=== PATIENT | female | born 1965 | race Hispanic/Latino ===

== ENCOUNTER 2017-05-02 14:57 | Inpatient (IN) | payer SELFPAY ==
[2017-05-02] VITALS (7 sets, daily range): BP systolic 122–143; BP diastolic 75–86
[~2017-05-02] VITALS: Ht 171.4 cm; Wt 112.9 kg
[2017-05-02 15:23] LABS: BASOPHILS # (AUTO) 0.1 (0.0-0.1); BASOPHILS % 0.8 % (0.0-1.0); EOSINOPHILS # (AUTO) 0.1 (0.0-0.4); EOSINOPHILS % 1.5 % (0.0-6.0); HEMATOCRIT 28.9 % (34.2-44.1); LYMPHOCYTES # (AUTO) 2.5 (1.0-3.2); LYMPHOCYTES % 37.4 % (18.0-39.1); MEAN CORPUSCULAR HEMOGLOBIN 18.7 pg (28-32); MEAN CORPUSCULAR VOLUME 69.1 fL (81-99); MONOCYTES # (AUTO) 0.5 (0.2-0.8); NEUTROPHILS # (AUTO) 3.4 (2.1-6.9); NEUTROPHILS % 51.8 % (38.7-80.0); PLATELET COUNT 347 x10e3/uL (140-360); RED BLOOD COUNT 4.18 x10e6/uL (3.6-5.1)
[2017-05-02 15:25] LABS: HEMOGLOBIN 7.8 g/dL (12.0-16.0)
[2017-05-02 15:27] LABS: INR 0.83; PROTHROMBIN TIME 11.8 seconds (11.9-14.5)
[2017-05-02 15:28] LABS: PARTIAL THROMBOPLASTIN TIME 29.6 seconds (23.8-35.5)
--- NOTE | 2017-05-02 15:29 | Diagnostic Imaging Report ---
Two view chest x-ray INDICATION: Dizziness COMPARISON: None. FINDINGS: Images are compromised due to multiple gridlines. The cardiomediastinal silhouette is normal. There is no evidence of hilar lymphadenopathy. The pulmonary vascular markings are normal. There is no evidence of focal consolidation or pleural effusion. Evaluation of the osseous structures demonstrates no focal abnormality. IMPRESSION: No active cardiopulmonary disease. Signed by: Dr. Rodney Estes MD on 05/02/2017 3:25 PM
[2017-05-02 15:35] LABS: ANION GAP 12.5 mmol/L (8-16); BLOOD UREA NITROGEN 13 mg/dL (7-26); BUN/CREATININE RATIO 18 (6-25); CALCIUM 8.9 mg/dL (8.4-10.2); CARBON DIOXIDE 26 mmol/L (22-29); CHLORIDE 106 mmol/L (98-107); CREATINE KINASE 211 IU/L (29-168); CREATININE, SERUM 0.73 mg/dL (0.57-1.11); EST GLOMERULAR FILTRATION RATE > 60 ML/MIN (60-); GLUCOSE 95 mg/dL (74-118); POTASSIUM 3.5 mmol/L (3.5-5.1); SODIUM 141 mmol/L (136-145)
[2017-05-02 15:41] LABS: TROPONIN I 0.003 ng/mL (0-0.300)
--- NOTE | 2017-05-02 15:42 | Diagnostic Imaging Report ---
Examination: CT BRAIN WITHOUT CONTRAST History:Dizziness. Comparison studies:None Technique: Axial images were obtained from the skull base to the vertex. Coronal and sagittal images reconstructed from the axial data. Intravenous contrast: None Findings: Scalp: No abnormalities. Bones: No fractures, blastic or lytic lesions. Brain sulci: Appropriate for age. Ventricles: Normal in size and configuration. No hydrocephalus. Extra-axial space: No abnormalities. Parenchyma: No abnormal densities. No masses, hemorrhage, or acute or chronic cortical based vascular insults. Sellar/suprasellar region: No abnormalities. Craniocervical junction: Patent foramen magnum. No Chiari one malformation. Incidental findings: Opacified right sphenoid sinus with adjacent osteitis. Impression: 1. No intracranial abnormalities. 2. Chronic right sphenoid sinusitis. Signed by: Dr. Ngozi Butterfield M.D. on 05/02/2017 3:38 PM
[2017-05-02] MEDS ORDERED: SODIUM CHLORIDE 0.9% 250ML 250 ML IV ONE (15:45)
--- NOTE | 2017-05-02 17:02 | Diagnostic Imaging Report ---
CT chest pulmonary embolism protocol CPT code: 47814 INDICATION: Chest heaviness, vertigo TECHNIQUE: Thin collimation axial images obtained through the level of the pulmonary arteries with additional imaging through the chest following the uneventful administration of 100 cc of low osmolar, nonionic intravenous contrast. Images reconstructed into coronal and sagittal MIPs for complete evaluation of the tortuous and overlapping pulmonary vascular structures and to reduce patient radiation dose. RADIATION DOSE: Total DLP: 631 mGy*cm Estimated effective dose: (DLP x 0.015 x size factor) mSv CTDIvol has been reviewed. It is below the limits set by the Radiation Protocol Committee (RPC). COMPARISON: None. FINDINGS: Pulmonary artery: No filling defects are appreciated within the main, left, right, lobar or visualized segmental pulmonary arteries to suggest embolism. Aorta: The thoracic aorta is not mildly ectatic but aneurysmal. No evidence for dissection. Lymph nodes: No enlarged axillary, supraclavicular, mediastinal, or hilar lymph nodes. Thyroid: Normal in size without mass in the visualized parenchyma.. Mediastinum: The heart is normal in size. No pericardial effusion. The esophagus is collapsed. Lungs: Right Lung: There is eventration of the right diaphragm. No evidence of infiltrate. A calcified granuloma in the upper lobe measures 3 mm. No soft tissue mass. Mild air trapping present throughout. Left Lung: No evidence of infiltrate or soft tissue mass. Mild air trapping present throughout. Airways: No bronchial wall thickening. The airways are patent. Pleura: No pleural effusion or pleural based mass.. Abdomen: Visualized portions of the liver, gallbladder, pancreas, spleen, adrenal glands, and kidneys demonstrate no evidence of mass. There is fullness of the right renal collecting system without perinephric inflammation. Bones: No focal osseous lesions. IMPRESSION: 1. No evidence of pulmonary embolus or aortic dissection. 2. Mild eventration of the right diaphragm. 3. Fullness of the right renal collecting system of uncertain etiology. No perinephric inflammation. 4. Mild pulmonary air trapping suggestive of small airways disease. Signed by: Dr. Rodney Estes MD on 05/02/2017 4:58 PM
[2017-05-02] MEDS: MORPHINE SULFATE 2 MG/ML SYR IV PRN (21:00)
[2017-05-02] MEDS: SODIUM CHLORIDE FLUSH 10 ML SYR INJ PRN (21:28)
[2017-05-03] VITALS (24 sets, daily range): BP systolic 114–156; BP diastolic 75–97
[2017-05-03] MEDS ORDERED: IOPAMIDOL 370 MG/ML 200 ML INFUS..BTL INJ ONE (00:27)
[2017-05-03] MEDS ORDERED: SODIUM CHLORIDE 0.9% 50ML 50 ML ONE (00:27)
[2017-05-03 00:31] LABS: CREATINE KINASE MB 4.4 ng/mL (0.00-5.00); TROPONIN I 0.014 ng/mL (0-0.300)
[2017-05-03] MEDS: SODIUM CHLORIDE FLUSH 10 ML SYR INJ PRN ×2 (03:32→06:07)
[2017-05-03] MEDS: MORPHINE SULFATE 2 MG/ML SYR IV PRN ×5 (03:32→23:45)
[2017-05-03] MEDS: ACETAMINOPHEN 325 MG TAB PO PRN ×2 (04:15→15:53)
[2017-05-03] MEDS ORDERED: ACETAMINOPHEN 325 MG TAB ONE (04:17)
[2017-05-03 07:10] LABS: TROPONIN I 0.004 ng/mL (0-0.300)
[2017-05-03 07:13] LABS: CHOL/HDL RATIO 3.7 (3.0-3.6)
[2017-05-03] MEDS ORDERED: NITROGLYCERIN 0.4 MG SUBL SL PRN (10:00)
[2017-05-03] MEDS: PANTOPRAZOLE SOD 40 MG TABEC PO SCH (10:51)
[2017-05-03] MEDS: ENOXAPARIN SODIUM INJ 100 MG/ML SYR SC SCH ×2 (10:51→20:08)
--- NOTE | 2017-05-03 10:51 | History and Physical ---
A patient of Dr. Wen. An unfortunate 52-year-old woman admitted with chest pain which occurred while she was driving her car. Got short of breath, had chest tightness and dizziness. Chest pressure had been noted earlier in the day in the center of her chest. She was unable to take a deep breath. On arrival in the emergency room, her hemoglobin was noted to be 7.8. She was taken by ambulance. She has had a history of indigestion. She has had C-sections. Family history is positive for coronary disease, carcinoma of the esophagus in the father. Born in [place], [place]. She smoked half to a third a pack of cigarettes a day for 25 years. Drinks rarely. 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 NO KNOWN ALLERGIES. Takes p.r.n. Nexium. She is usually active. She is dyspneic on 1 flight. Admits to being overweight. Denies depression, denies urologic problems, denies eye problems. She does have a history of acid reflux. Generally she has been tired and fatigued, and she was found to be anemic. PHYSICAL EXAMINATION VITAL SIGNS: Temperature 98.7, pulse 64, respiration 16, blood pressure 134/70. HEAD: Normocephalic, atraumatic. EYES: Extraocular movements intact. LUNGS: Clear. HEART: Regular rhythm. ABDOMEN: Nontender. EXTREMITIES: Nonedematous. IMPRESSION: One of 1. Anemia which is hyperchromic microcytic. 2. Angina pectoris. PLAN: Cardiology and GI opinions. Anticoagulation. Nitroglycerin p.r.n. Consider low-dose beta steven, though heart rate is already 64. Will defer this to the enrollment consultant. CT revealed no evidence of pulmonary embolus. There was elevated diaphragm, questionable fullness of the collecting system on the right. Will check a urinalysis. Continue ICU care until seen by escort car driver. Thank you for this kind referral. Job#: [id number] EV
[2017-05-03 11:11] LABS: FREE THYROXINE INDEX 2.235 (1.4-3.8); T3 UPTAKE 29.14 % (22.50-37.00); THYROID STIMULATING HORMONE 3.099 uIU/mL (0.350-4.940)
[2017-05-03] MEDS ORDERED: PEG (High)/E-LYTE SOLN 4,000 ML BTL PO ONE (14:45)
[2017-05-03 15:01] LABS: BILIRUBIN,URINE NEGATIVE (NEGATIVE); CLARITY,URINE CLEAR (CLEAR); COLOR,URINE YELLOW (YELLOW); KETONES,URINE NEGATIVE (NEGATIVE); LEUKOCYTE ESTERASE ,URINE NEGATIVE (NEGATIVE); NITRITE,URINE NEGATIVE (NEGATIVE); PROTEIN,URINE DIPSTICK NEGATIVE (NEGATIVE); URINE UROBILINOGEN 0.2 mg/dL (0.2 - 1)
[2017-05-03 15:04] LABS: BACTERIA,URINE FEW /HPF; EPITHELIAL CELLS,URINE RARE /LPF; WBC,URINE (MAN) 0-5 /HPF (0-5)
[2017-05-03] MEDS: ONDANSETRON HCL INJ 2 MG/ML VIAL IV PRN ×2 (18:48)
[2017-05-03] MEDS ORDERED: PROMETHAZINE 12.5MG/ NACL 0.9% 12.5 MG/50 ML BAG IV PRN (19:45)
[2017-05-03] MEDS ORDERED: CITRATE OF MAGNESIA 300ML BOTTLE PO ONE ×2 (19:45→22:30)
[2017-05-03] MEDS: SIMVASTATIN 40 MG TAB PO SCH (20:08)
[2017-05-04] VITALS (16 sets, daily range): BP systolic 116–165; BP diastolic 63–109
[2017-05-04] MEDS: MORPHINE SULFATE 2 MG/ML SYR IV PRN ×2 (05:19→20:16)
[2017-05-04] MEDS: ONDANSETRON HCL INJ 2 MG/ML VIAL IV PRN (05:27)
[2017-05-04 05:33] LABS: BASOPHILS % 0.7 % (0.0-1.0); EOSINOPHILS # (AUTO) 0.1 (0.0-0.4); EOSINOPHILS % 1.2 % (0.0-6.0); HEMATOCRIT 30.1 % (34.2-44.1); HEMOGLOBIN 8.4 g/dL (12.0-16.0); LYMPHOCYTES # (AUTO) 2.8 (1.0-3.2); LYMPHOCYTES % 49.6 % (18.0-39.1); MEAN CORPUSCULAR HEMOGLOBIN 19.9 pg (28-32); MEAN CORPUSCULAR HGB CONC 27.9 g/dL (31-35); MEAN CORPUSCULAR VOLUME 71.2 fL (81-99); MONOCYTES # (AUTO) 0.7 (0.2-0.8); MONOCYTES % 11.4 % (4.4-11.3); NEUTROPHILS # (AUTO) 2.1 (2.1-6.9); NEUTROPHILS % 36.9 % (38.7-80.0); PLATELET COUNT 294 x10e3/uL (140-360); RED BLOOD COUNT 4.23 x10e6/uL (3.6-5.1); RED CELL DISTRIBUTION WIDTH 20.3 % (11.7-14.4)
[2017-05-04 05:50] LABS: ALANINE AMINOTRANSFERASE 16 IU/L (0-55); ALBUMIN 3.2 g/dL (3.5-5.0); ALBUMIN/GLOBULIN RATIO 0.8 (0.8-2.0); ALKALINE PHOSPHATASE 77 IU/L (40-150); ANION GAP 10.4 mmol/L (8-16); BLOOD UREA NITROGEN 11 mg/dL (7-26); BUN/CREATININE RATIO 15 (6-25); CALCIUM 8.9 mg/dL (8.4-10.2); CARBON DIOXIDE 29 mmol/L (22-29); CHLORIDE 108 mmol/L (98-107); CREATININE, SERUM 0.75 mg/dL (0.57-1.11); EST GLOMERULAR FILTRATION RATE > 60 ML/MIN (60-); GLUCOSE 84 mg/dL (74-118); POTASSIUM 3.4 mmol/L (3.5-5.1); SODIUM 144 mmol/L (136-145)
[2017-05-04 07:57] LABS: EOSINOPHILS % (MANUAL) 1 % (0-7); HYPOCHROMASIA MODERATE; LYMPHOCYTES % (MANUAL) 57 % (19-48); MONOCYTES % (MANUAL) 4 % (3.4-9.0); NEUTROPHILS % (MANUAL) 37 % (40-74)
[2017-05-04 07:58] LABS: ANISOCYTOSIS SLIGHT; PLATELET ESTIMATE ADEQUATE; PLATELET MORPHOLOGY COMMENT NORMAL; RBC MORPHOLOGY COMMENT NORMAL
[2017-05-04] MEDS: PANTOPRAZOLE SOD 40 MG TABEC PO SCH (08:24)
--- NOTE | 2017-05-04 08:25 | Consultation ---
DATE OF CONSULTATION: May 03, 2017 CARDIOLOGY CONSULTATION Thank you so much for the consultation. REASON FOR CONSULTATION 1. Chest pain, highly suggestive of angina pectoris. 2. Anemia, hemoglobin 7.9 g%. 3. Obesity. 4. Borderline hyperlipidemia. 5. Possible borderline hypertension, new. HPI: Ms. Marielos Marroquin is a pleasant 52-year-old patient admitted because of chest tightness and pain on and off for a couple of days. Patient admitted through the emergency room. When I saw the patient, she did not have chest pain but before I saw patient's chest pain, the patient was given morphine. Patient already seen by Dr. Wen and associates and already started on Lovenox, anticholesterol medications and Zocor, put on aspirin and also ordering a stress test, Lexiscan, and echocardiogram. Patient has family history of coronary artery disease in uncles and aunts. Patient did not have any cardiac issues. 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 She had a before. Her menstrual cycle stopped 9 months ago, but spotting is still present. No history of any GI bleed, but she has hemorrhoids but not bleeding. Two children. No other surgeries. No history of cardiac issues or hypertension or diabetes mellitus. Stopped smoking about 9 years ago. PHYSICAL EXAMINATION HEART: Normal. LUNGS: Normal. ABDOMEN: Normal. NEUROLOGICAL: Normal. SKIN: Normal. Troponin is negative. Anyhow, because of the chest pain and fairly strong family history of coronary artery disease, I am ordering a Lexiscan, 2D echocardiogram, and I will continue to follow the patient. We will give the patient ICU until tomorrow. Depending on the nuclear stress test, we will move her out of the ICU. Thank you again for this consultation. Job#: [id number] KATT LORA
[2017-05-04] MEDS: METOPROLOL TARTRATE 25 MG TAB PO SCH ×2 (09:00→18:13)
[2017-05-04] MEDS ORDERED: REGADENOSON 0.4 MG/5 ML SYR IV ONE (12:12)
[2017-05-04] MEDS ORDERED: POTASSIUM CHLORIDE 20MEQ/15ML UDC NG PRN (13:45)
--- NOTE | 2017-05-04 13:50 | Progress Note ---
DATE: CARDIOLOGY PROGRESS NOTE Patient is seen in the room. Patient at this time fairly doing well. Her troponins are negative. Patient came with hemoglobin of 7.9 gram percent. At this time, patient with no obvious GI bleed but some history of hemorrhoids were there. At this time, however, patient mainly came for chest tightness and shortness of breath, and at this time I ordered a nuclear stress test and this is being done today. Of course, being done, is not yet completed. Once they are available, I will put the report in the chart and also discuss with the patient about her chest pain and chest tightness for which she came. Patient at this time stable cardiac status. Job#: [id number] EV
[2017-05-04] MEDS: SIMVASTATIN 40 MG TAB PO SCH (20:14)
[2017-05-04] MEDS: ENOXAPARIN SODIUM INJ 100 MG/ML SYR SC SCH (21:00)
[2017-05-05] VITALS: BP 133/75
[2017-05-05] MEDS ORDERED: CITRATE OF MAGNESIA 300ML BOTTLE PO STA (01:41)
[2017-05-05 04:00] VITALS: BP_SYST 133; BP_SYST 135; BP_DIAS 75; BP_DIAS 93
[2017-05-05] MEDS ORDERED: CITRATE OF MAGNESIA 300ML BOTTLE PO ONE (05:00)
[2017-05-05 07:21] LABS: BASOPHILS % 0.7 % (0.0-1.0); EOSINOPHILS # (AUTO) 0.1 (0.0-0.4); EOSINOPHILS % 1.7 % (0.0-6.0); HEMATOCRIT 31.8 % (34.2-44.1); HEMOGLOBIN 8.7 g/dL (12.0-16.0); LYMPHOCYTES # (AUTO) 1.7 (1.0-3.2); LYMPHOCYTES % 31.1 % (18.0-39.1); MEAN CORPUSCULAR HEMOGLOBIN 19.9 pg (28-32); MEAN CORPUSCULAR HGB CONC 27.4 g/dL (31-35); MEAN CORPUSCULAR VOLUME 72.6 fL (81-99); MONOCYTES # (AUTO) 0.6 (0.2-0.8); MONOCYTES % 10.3 % (4.4-11.3); NEUTROPHILS # (AUTO) 3.1 (2.1-6.9); PLATELET COUNT 313 x10e3/uL (140-360); RED BLOOD COUNT 4.38 x10e6/uL (3.6-5.1); RED CELL DISTRIBUTION WIDTH 20.6 % (11.7-14.4)
[2017-05-05] MEDS: PANTOPRAZOLE SOD 40 MG TABEC PO SCH (07:30)
[2017-05-05 07:43] LABS: ALANINE AMINOTRANSFERASE 18 IU/L (0-55); ALBUMIN 3.5 g/dL (3.5-5.0); ALBUMIN/GLOBULIN RATIO 0.9 (0.8-2.0); ALKALINE PHOSPHATASE 80 IU/L (40-150); ANION GAP 11.7 mmol/L (8-16); BLOOD UREA NITROGEN 13 mg/dL (7-26); BUN/CREATININE RATIO 16 (6-25); CALCIUM 9.2 mg/dL (8.4-10.2); CARBON DIOXIDE 27 mmol/L (22-29); CHLORIDE 107 mmol/L (98-107); CREATININE, SERUM 0.79 mg/dL (0.57-1.11); EST GLOMERULAR FILTRATION RATE > 60 ML/MIN (60-); GLUCOSE 88 mg/dL (74-118); POTASSIUM 3.7 mmol/L (3.5-5.1); SODIUM 142 mmol/L (136-145)
[2017-05-05 07:52] VITALS: BP 104/75
[2017-05-05] MEDS: METOPROLOL TARTRATE 25 MG TAB PO SCH ×2 (09:00→16:30)
[2017-05-05] MEDS: ASPIRIN 325 MG TAB PO SCH (09:00)
[2017-05-05] MEDS: ENOXAPARIN SODIUM INJ 100 MG/ML SYR SC SCH (09:00)
[2017-05-05 10:18] LABS: ANISOCYTOSIS SLIGHT; EOSINOPHILS % (MANUAL) 6 % (0-7); HYPOCHROMASIA SLIGHT; LYMPHOCYTES % (MANUAL) 35 % (19-48); MONOCYTES % (MANUAL) 9 % (3.4-9.0); NEUTROPHILS % (MANUAL) 48 % (40-74); RBC MORPHOLOGY COMMENT ABNORMAL
[2017-05-05 10:19] LABS: PLATELET ESTIMATE ADEQUATE; PLATELET MORPHOLOGY COMMENT NORMAL
--- NOTE | 2017-05-05 10:44 | Operative Report ---
DATE OF PROCEDURE: May 05, 2017 REFERRING PHYSICIAN: Dr. Juwan Sawyer. PROCEDURES PERFORMED 1. Esophagogastroduodenoscopy with biopsies. 2. Colonoscopy with polypectomy. INDICATIONS FOR EGD: Acid reflux. INDICATIONS FOR COLONOSCOPY: Iron deficiency anemia. MEDICATION: Patient was done under MAC. Please see anesthesiologist's note. PROCEDURE: With the patient in the left lateral decubitus position, the flexible fiberoptic Olympus gastroscope was introduced into the esophagus under direct visualization without any difficulty. There was some patchy erythema noted in the distal esophagus. The scope was then advanced with ease into the stomach, and erosions were noted in the antrum. The body of the stomach grossly appeared to be within normal limits. Biopsies were obtained from the antrum. The pylorus appeared to be of normal contour and shape. It was intubated with ease, and the scope was advanced all the way to the 2nd portion of the duodenum. Biopsies were obtained from the proximal 2nd portion to rule out sprue. The mucosa overlying the duodenal bulb appeared to be within normal limits. The scope was then withdrawn back into the stomach and retroflexed. Mucosa overlying the fundus and the cardia appeared to be within normal limits. There was a small hiatal hernia noted in the retroflexed position. The scope was then straightened out. The stomach was decompressed. Scope was subsequently withdrawn. Patient tolerated the procedure well. IMPRESSION 1. Mild distal esophagitis. 2. Small sliding hiatal hernia. 3. Gastritis, erosive, biopsied. Biopsies sent to stain for H. pylori. 4. Rule out sprue. PLAN: Follow up histology. Initiate Protonix 40 mg 1 p.o. q.a.m. a.c. The patient was then turned around. After adequate lubrication of the anal canal, a flexible fiberoptic Olympus colonoscope was inserted into the rectum with ease and advanced all the way to the cecum. Some black and brown scattered discoloration was noted to involve the cecum and ascending colon suspicious for melanosis coli. There was a single diverticulum in the cecum and a single diverticulum in the proximal transverse colon. One polyp was hot biopsied from the proximal transverse colon. The rest of the transverse, descending, sigmoid and rectum grossly appeared to be within normal limits. The scope was then retroflexed into the distal rectum, and small internal hemorrhoids were noted, none of which was actively bleeding. The scope was then straightened out. The rectosigmoid area as well as the distal rectal area were decompressed. Scope was subsequently withdrawn. Patient tolerated the procedure well. IMPRESSION 1. Melanosis coli, cecum and ascending colon. 2. Diverticulosis, minimal. 3. Proximal transverse colon polyp, hot biopsied. 4. Internal hemorrhoids, none actively bleeding. PLAN: Follow up histology. Initiate high-fiber, low-fat diet. Initiate high-fiber supplement. Findings do not explain the patient's anemia. Will proceed with small-bowel series and if negative patient will need a capsule endoscopy on an outpatient basis. She will need a followup colonoscopy in 3 years. Job#: [id number] cc:JUWAN SAWYER MD
[2017-05-05 11:17] VITALS: BP 137/98
[2017-05-05 15:38] VITALS: BP 115/81
[2017-05-05] MEDS ORDERED: PROPOFOL IV EMULSION 10 MG/ML 50 ML VIAL ONE (17:45)
[2017-05-05] MEDS ORDERED: FENTANYL CITRATE/PF 100MCG/2 ML INJ ONE (19:06)
[2017-05-05] MEDS ORDERED: MIDAZOLAM HCL 2 MG/2 ML VIAL ONE (19:06)
[2017-05-05 20:00] VITALS: BP 140/93
--- NOTE | 2017-05-05 20:16 | Progress Note ---
DATE: May 05, 2017 CARDIOLOGY PROGRESS NOTE The patient's nuclear test is normal. Ejection fraction of 60%. The patient came with anginal like symptoms. However, ruled out for myocardial infarction. Because of obesity and some family history of coronary artery disease, investigation performed. The patient at this time found to have a low hemoglobin of 8.1 grams%. The patient underwent endoscopy. Please look at the endoscopy report. From a cardiac point of view, the patient can be discharged to follow up in my office in one week for post hospital followup and follow up with Dr. Mendez, her primary care physician. From my point of view, the patient can be discharged. Job#: [id number] GH
[2017-05-05] MEDS ORDERED: ALBUTEROL/IPRATROPIUM 3 ML NEB NEB PRN (20:45)
[2017-05-05] MEDS: SIMVASTATIN 40 MG TAB PO SCH (20:50)
[2017-05-05] MEDS: ACETAMINOPHEN 325 MG TAB PO PRN (20:50)
[2017-05-06] VITALS (7 sets, daily range): BP systolic 98–148; BP diastolic 67–102
[2017-05-06] MEDS: PANTOPRAZOLE SOD 40 MG TABEC PO SCH (07:30)
[2017-05-06] MEDS ORDERED: DIPHENHYDRAMINE HCL INJ 25 MG in SODIUM CHLORIDE 0.9% 50ML 50 ML IV ONE ×2 (08:00→08:30)
[2017-05-06] MEDS ORDERED: DEXAMETHASONE PHOS 10MG INJ 20 MG in SODIUM CHLORIDE 0.9% 50ML 50 ML IV ONE (08:00)
[2017-05-06] MEDS ORDERED: FAMOTIDINE INJ 20 MG in SODIUM CHLORIDE 0.9% 50ML 50 ML IV ONE ×2 (08:00→08:30)
[2017-05-06] MEDS ORDERED: IRON DEXTRAN INJ 50 MG in SODIUM CHLORIDE 0.9% 100 ML IV ONE ×2 (08:00→08:30)
[2017-05-06] MEDS ORDERED: IRON DEXTRAN INJ 500 MG in SODIUM CHLORIDE 0.9% 500ML 500 ML IV PRN ×2 (08:00→08:30)
[2017-05-06] MEDS: ASPIRIN 325 MG TAB PO SCH (09:00)
--- NOTE | 2017-05-06 09:15 | Consultation ---
DATE OF CONSULTATION: May 05, 2017 Marielos Marroquin is a 52-year-old female referred to me for evaluation of anemia. No history of hematochezia, melena, hematuria, hematemesis, hemoptysis. The patient had presented with chest pain. Subsequently, referred to Dr. Bryant. For detailed consult, please review Dr. Bryant's consultation. The patient was also referred to Dr. Anuj Valencia. SOCIAL HISTORY: Noncontributory. FAMILY HISTORY: Noncontributory. ALLERGIES: REPORTED NONE. MEDICATIONS: At this time: 1. Morphine. 2. Ondansetron. 3. Sodium chloride. 4. Tylenol. 5. Nitroglycerin. 6. Protonix. 7. Metoprolol. 8. Simvastatin. 9. Potassium chloride. 10. Promethazine. 11. Lovenox. REVIEW OF SYSTEMS HEENT: Normal. CARDIAC: Labeled as angina by Dr. Bryant. RESPIRATORY: Normal. GI: Iron deficiency anemia. : Normal. MUSCULOSKELETAL: Normal. SKIN AND BREASTS: Normal. NEUROENDOCRINE: Essentially normal. PHYSICAL EXAMINATION GENERAL: A rather obese female. No palpable adenopathy. HEART: Within normal limits. LUNGS: Clear. BREASTS: Deferred at request. ABDOMEN: Obese. There is no hepatosplenomegaly. RECTAL: Vaginal exam deferred. CENTRAL NERVOUS SYSTEM: Normal. EXTREMITIES: Essentially normal. LAB: Which has prompted the consultation shows a hemoglobin of 7.8, hematocrit 28.9, white count 6600, and platelets reported at 347,000. MCV very low at 69.1. MCHC very low at 27. RDW high at 19. The patient has been transfused to 8.7. Chemistry shows a sodium of 141, potassium 3.5, chloride 76, CO2 26, BUN 13, creatinine 0.7, glucose 95. Creatinine kinase is reported at 211. CK-MB reported at 6.1. Troponin was reported at 0.003. Qualitative HCG was done, which was reported to negative. The patient's cholesterol is high at 210. LDL high at 137. TSH 3. Total protein 7, albumin 3.2, globulin slightly high at 3.8. Iron low at 35. Iron binding capacity very high at 546. Saturation low at 6. Transferrin high at 390. The patient had an EGD and colonoscopy by Dr. Anuj Valencia, which showed the patient to have distal esophagitis, small sliding hiatus hernia, gastritis. By colonoscopy, she had melanosis coli, diverticulosis coli, proximal and transfer colon polyp, and internal hemorrhoids. IMPRESSION 1. Iron deficiency anemia. 2. Gastritis. 3. Esophagitis. 4. Diverticulosis coli. 5. Colonic polyp. 6. Internal hemorrhoids. 7. Morbid obesity. 8. Possible coronary artery disease being worked up by Dr. Bryant. PLAN, COMMENTS AND SUGGESTIONS: I will confine myself to hematology only. This is pure iron deficiency anemia. Sprue is definitely a possibility. However, slow blood loss because of the above GI diagnosis is also possible. Nutritional status of this patient seems to be perfectly fine. Hence, the patient is suggested to have Infed. I have spoken to her and Dr. Juwan Mendez. The patient does not have any insurance. I will confine myself to hematology only during this hospitalization. I will give her Infed. However, the patient has to be referred her to a facility where the patient will be taken care of as the patient should have a calculation by a normal gram of the amount of Infed to be given. Quantitation of immunoglobulins also suggested as the immunoglobulins have been slightly high. However, a followup of this should be done by the attending physician. Thank you very much for allowing me to participate in the management of this patient during this hospitalization. Job#: [id number] RI cc:Erica MONTERO MD DAVID STEIN, MD MAURICE HADDAD, MD
--- NOTE | 2017-05-06 11:25 | Cardiology Report ---
DATE OF STUDY: May 03, 2017 NUCLEAR GATED MYOCARDIAL PERFUSION SCAN Nuclear gated myocardial perfusion scan performed as per protocol at nuclear medicine lab at [facility] with Myoview protocol. Myoview was injected 10.5 millicuries per resting protocol and 32 millicuries per stress protocol. Lexiscan was given 0.4 mg intravenously as stress agent. I supervised the test and interpreted the test. Normal nuclear gated myocardial perfusion scan. Ejection fraction was 55%. No evidence of ischemia or scar noted. Job#: [id number]
[2017-05-06] MEDS ORDERED: ENOXAPARIN SODIUM INJ 100 MG/ML SYR SC SCH (11:30)
[2017-05-06] MEDS ORDERED: SODIUM CHLORIDE 0.9% 250ML 250 ML ONE (12:17)
--- NOTE | 2017-05-06 12:21 | Diagnostic Imaging Report ---
PROCEDURE: SMALL BOWEL SERIES FLUOROSCOPY TIME: 0.2 MINUTES Comparison: None. Indications: ANEMIA Technique: Small bowel follow through exam was performed using oral barium. Preliminary image was obtained before administration of contrast and serial overhead images were obtained after administration of oral barium. Fluoroscopy was performed and spot images were obtained. Findings: Body Care Manager radiograph shows a nonobstructive bowel gas pattern. No abnormal abdominal calcifications, mass effect, or organomegaly. Multilevel degenerative disc changes of the lumbar spine. SMALL BOWEL FOLLOW THROUGH: Small bowel loops are normal in caliber and distribution. Spot compression views of the terminal ileum are normal. The transit time was normal. IMPRESSION: Unremarkable fluoroscopic small bowel series. Dictated by: Juwan Etienne M.D. on 05/06/2017 at 12:29 Electronically approved by: Juwan Etienne M.D. on 05/06/2017 at 12:29
[2017-05-06] MEDS: ENOXAPARIN SOD INJ 40 MG/0.4 ML SYR SC SCH (12:43)
[2017-05-06] MEDS: METOPROLOL TARTRATE 25 MG TAB PO SCH ×2 (12:45→17:00)
--- NOTE | 2017-05-06 13:10 | Progress Note ---
DATE: CARDIOLOGY PROGRESS NOTE DIAGNOSES 1. Anemia. 2. Presented with angina pectoris. 3. Obesity. 4. Hypertension. Patient underwent echocardiogram and coronary angiogram. Coronary arteries normal. Left ventricular ejection fraction is normal. At this time, patient being investigated by GI and patient went today for small-bowel series and also patient is followed by Dr. Temple for anemia. Cardiac-lind, patient has done well, no cardiac issues except hypertension and obesity. That will be adjusted as an outpatient. Anytime patient can be discharged at discretion of Dr. Mendez and associates and Dr. Temple and the GI doctor. Already discussed with her last night. Job#: [id number] EV
[2017-05-06] MEDS: SIMVASTATIN 40 MG TAB PO SCH (20:39)
[2017-05-07] VITALS: BP 145/89
[2017-05-07 04:00] VITALS: BP 136/84
[2017-05-07] MEDS: PANTOPRAZOLE SOD 40 MG TABEC PO SCH (07:30)
[2017-05-07 08:00] VITALS: BP 138/98
[2017-05-07] MEDS: METOPROLOL TARTRATE 25 MG TAB PO SCH (09:17)
[2017-05-07] MEDS ORDERED: FEOSOL325 MG PO (09:20)
[2017-05-07] MEDS: ENOXAPARIN SOD INJ 40 MG/0.4 ML SYR SC SCH (11:30)
[2017-05-07] MEDS ORDERED: FERROUS SULFAT325 MG PO ×2 (11:30→11:31)
[2017-05-07 12:00] VITALS: BP 121/83
--- NOTE | 2017-05-07 14:57 | Discharge Summary ---
Admitted with anemia. Found to have gastritis, erosive, a colon polyp, and internal hemorrhoid. Small bowel series was negative. She did have family history of cancer of the GI tract; however, none could be found. She was felt to have persistent iron deficiency anemia. She presented with chest pain and shortness of breath. Cardiac evaluation was negative. Her symptoms seemed to be related to her anemia. Recommend to avoid all nonsteroidal agents. Her hemoglobin on admission was 7.8, rising to 8.1. She did receive iron infusion in hospital. She did receive 1 unit of packed cells. Advised to follow up with the [facility]. Job#: [id number] SAK
== END 2017-05-07 12:54 | disposition home or self-care (01) | DRG 812 ==
LOC: ER 14:57 → ERHOLD 16:26 → ICU 19:10 → MED/SURG3 05-04 22:15
PROVIDERS: ADMIT Internal Medicine; ATTEND Internal Medicine
PROC: 0DB98ZX Excision of Duodenum, Via Natural or Artificial Opening Endoscopic, Diagnostic (ICD-10-PCS; 2017-05-05)
PROC: 0DB88ZX Excision of Small Intestine, Via Natural or Artificial Opening Endoscopic, Diagnostic (ICD-10-PCS; 2017-05-05)
PROC: 0DBL8ZX Excision of Transverse Colon, Via Natural or Artificial Opening Endoscopic, Diagnostic (ICD-10-PCS; 2017-05-05)
PROC: 30233N1 Transfusion of Nonautologous Red Blood Cells into Peripheral Vein, Percutaneous Approach (ICD-10-PCS; 2017-05-05)
PROC: 0DB78ZX Excision of Stomach, Pylorus, Via Natural or Artificial Opening Endoscopic, Diagnostic (ICD-10-PCS; principal; 2017-05-05 08:00)
PROC: 0DB68ZX Excision of Stomach, Via Natural or Artificial Opening Endoscopic, Diagnostic (ICD-10-PCS; 2017-05-05 08:00)
DX: D50.9 Iron deficiency anemia, unspecified (principal); K44.0 Diaphragmatic hernia with obstruction, without gangrene; K29.70 Gastritis, unspecified, without bleeding; D12.3 Benign neoplasm of transverse colon; E66.01 Morbid (severe) obesity due to excess calories; Z68.38 Body mass index [BMI] 38.0-38.9, adult; Z82.49 Family history of ischemic heart disease and other diseases of the circulatory system; K21.9 Gastro-esophageal reflux disease without esophagitis; K59.00 Constipation, unspecified; K31.9 Disease of stomach and duodenum, unspecified
CPT/HCPCS: 36415; 36430; 43239; 45384; 70450; 71020; 71260; 74250; 78452; 80048; 80053; 80061; 81001; 82550; 82553; 82784; 83540; 84436; 84443; 84466; 84479; 84484; 84702; 85025; 85379; 85610; 85730; 86850; 86900; 86920; 87086; 88304; 88305; 88312; 93005; 93017; 93306; 99284; A9502; J1100; J1200; J1650; J1750; J2250; J2270; J2405; J2550; J7040; J7050; P9016; Q9967

== ENCOUNTER → 2018-08-11 | Outpatient (CLI) | payer OTHER ==
[~2018-08-11] MED LIST: FEOSOL325 MG PO; FERROUS SULFAT325 MG PO
--- NOTE | 2018-08-11 10:19 | Diagnostic Imaging Report ---
History: Low back pain Comparison studies: None Technique: Axial images were obtained through the lumbar spine.. Coronal and sagittal images reconstructed from the axial data. Dose modulation, iterative reconstruction, and/or weight based adjustment of the mA/kV was utilized to reduce the radiation dose to as low as reasonably achievable. Intravenous contrast: None Findings: Number of non-rib bearing vertebral bodies: 5 Alignment: Mild kyphosis at L2-L3 with 3 mm retrolisthesis of L3 on L4 with associated mild lower hyperlordotic lumbar curvature. Lumbar curvature convex to the to the right centered at L3-L4. Soft tissues: No gross acute abnormalities. Paraspinal muscles: Dorsal paraspinal muscles with asymmetric severe fatty replaced atrophy from the included T12 through L1 levels and moderately atrophic from L2 to the sacrum. Sacroiliac joints: Mild degenerative changes bilaterally. Vertebrae: No fractures, infection or neoplasm. Degenerative changes: L1-L2: Mildly degenerated disc. Small ossification along the posterior longitudinal ligament and mildly thickened and partially ossified ligamentum flavum without significant canal or foraminal stenosis. L2-L3: Moderately degenerated disc with loss of disc height and vacuum, most pronounced on the left along the concavity lumbar curvature. Asymmetric left disc osteophyte complex and mildly thickened and partially ossified posterior longitudinal ligament without significant canal or foraminal stenosis. L3-L4: Moderately degenerated disc with loss of disc height and vacuum phenomenon most pronounced on the left along the concavity of curvature. Minimal retrolisthesis of L3 on L4 with associated disc osteophyte complex asymmetric to the left, thickened and partially ossified ligamentum flavum and bilateral facet arthrosis with moderate left and mild right foraminal stenosis and very mild canal stenosis. L4-L5: Mildly degenerated disc. Disc bulge, thickened and partially ossified ligamentum flavum and bilateral facet arthrosis with mild canal stenosis and moderate bilateral foraminal stenosis. L5-S1: Moderately degenerated disc with loss of disc height and vacuum phenomenon. Minimal retrolisthesis of L5 on S1 with associated disc osteophyte complex, thickened ligamentum flavum and facet arthrosis with mild canal stenosis, narrowing of the subarticular recesses and severe bilateral foraminal stenosis. Incidental findings: Mild fullness of the right renal collecting system (also visualized in the partially imaged head CT of 05/02/2017) with partially imaged cystic structure at the inferior pole of the right kidney which measures up to at least 5.0 cm and may represent cyst or dilated extrarenal pelvis. IMPRESSION: 1. No lumbar spine fracture 2. Lumbar curvature convex to the right. 3. Degenerative changes with moderate multilevel disc degeneration, mild multilevel canal stenosis, multilevel facet arthrosis and multilevel foraminal stenosis (worse/severe bilaterally at L5-S1). 4. Persistent mild right renal collecting system fullness with incompletely evaluated possible cyst or dilated extrarenal pelvis. Renal ultrasound could further evaluate. Signed by: Dr. Juawn Lorenzana M.D. on 08/11/2018 10:16 AM
== END ==
LOC: CT 08:39
PROVIDERS: ATTEND Family Medicine
DX: M54.40 Lumbago with sciatica, unspecified side (principal); R29.6 Repeated falls
CPT/HCPCS: 72131

== ENCOUNTER 2020-12-22 20:43 | Inpatient (IN) | payer SELFPAY ==
[~2020-12-22] VITALS: Ht 171.4 cm; Wt 112.9 kg
[2020-12-22] MEDS ORDERED: CEFTRIAXONE 1 GM in SODIUM CHLORIDE 0.9% 50ML 50 ML IV STA (20:50)
[2020-12-22] MEDS ORDERED: ACETAMINOPHEN 325 MG TAB ONE (20:57)
[2020-12-22] MEDS ORDERED: ACETAMINOPHEN 325 MG TAB PO ONE (21:00)
[2020-12-22 21:04] LABS: BASOPHILS % 0.2 % (0.0-1.0); HEMATOCRIT 41.1 % (34.2-44.1); HEMOGLOBIN 13.2 g/dL (12.0-16.0); LYMPHOCYTES # (AUTO) 1.5 (1.0-3.2); LYMPHOCYTES % 27.4 % (18.0-39.1); MEAN CORPUSCULAR HEMOGLOBIN 29.3 pg (28-32); MEAN CORPUSCULAR HGB CONC 32.1 g/dL (31-35); MEAN CORPUSCULAR VOLUME 91.3 fL (81-99); MONOCYTES # (AUTO) 0.6 (0.2-0.8); MONOCYTES % 11.4 % (4.4-11.3); NEUTROPHILS # (AUTO) 3.4 (2.1-6.9); NEUTROPHILS % 60.6 % (38.7-80.0); PLATELET COUNT 155 x10e3/uL (140-360); RED CELL DISTRIBUTION WIDTH 12.8 % (11.7-14.4)
[2020-12-22] MEDS ORDERED: DEXAMETHASONE SOD PHOS 10 MG/1 ML VIAL IV STA (21:27)
[2020-12-22 21:34] LABS: ALBUMIN 3.7 g/dL (3.5-5.0); ANION GAP 18.2 mmol/L (8-16); CALCIUM 8.6 mg/dL (8.4-10.2); CREATININE, SERUM 0.84 mg/dL (0.57-1.11); POTASSIUM 3.2 mmol/L (3.5-5.1)
[2020-12-22 21:40] LABS: CREATINE KINASE MB 2.5 ng/mL (0-5.0)
[2020-12-22] MEDS ORDERED: DEXAMETHASONE PHOS IV ONE (21:45)
[2020-12-22] MEDS ORDERED: SODIUM CHLORIDE 0.9% IV ONE (21:45)
[2020-12-22] MEDS ORDERED: POTASSIUM CHLORIDE 20 MEQ TAB CR PO STA (21:58)
[2020-12-22] MEDS ORDERED: MORPHINE SULFATE INJ 4 MG/ML INJ 1ML IV PRN (22:00)
[2020-12-22] MEDS ORDERED: ONDANSETRON HCL INJ 2MG/ML 2ML 2 MG/ML VIAL IV PRN (22:00)
[2020-12-22 23:27] VITALS: BP 104/64
[2020-12-22 23:32] VITALS: BP 104/64
[2020-12-22] MEDS ORDERED: METOPROLOL TART25 MG PO (23:38)
[2020-12-23] VITALS (10 sets, daily range): BP systolic 111–134; BP diastolic 66–89
[2020-12-23] MEDS ORDERED: ACETAMINOPHEN 325 MG TAB PO PRN (01:15)
[2020-12-23] MEDS ORDERED: ONDANSETRON HCL INJ 2MG/ML 2ML 2 MG/ML VIAL IV PRN (01:15)
[2020-12-23] MEDS ORDERED: CHLORASEPTIC SPRAY 177 ML BTL MM PRN (01:15)
[2020-12-23] MEDS ORDERED: HYDRALAZINE HCL 20 MG/ML VIAL IV PRN (01:15)
[2020-12-23] MEDS ORDERED: HYDROCODONE/APAP 5MG-325MG TAB PO PRN (01:15)
[2020-12-23] MEDS ORDERED: DIPHENHYDRAMINE HCL 25 MG CAP PO PRN (01:15)
[2020-12-23] MEDS ORDERED: DOCUSATE SODIUM 100 MG CAP PO PRN (01:15)
[2020-12-23] MEDS ORDERED: MELATONIN 5 MG TABLET PO PRN (01:15)
[2020-12-23] MEDS ORDERED: GUAIFENESIN/CODEINE 10 ML CUP PO PRN (01:15)
[2020-12-23] MEDS ORDERED: SIMETHICONE 80 MG CHEW PO PRN (01:15)
[2020-12-23] MEDS ORDERED: POTASSIUM CHLORIDE 20 MEQ TAB CR PO PRN (01:15)
[2020-12-23] MEDS ORDERED: DEXTROSE 50% SYRINGE 50 ML IV PRN (01:15)
[2020-12-23] MEDS ORDERED: BENZONATATE 100 MG CAP PO PRN (01:15)
[2020-12-23] MEDS ORDERED: LIDOCAINE 4% PATCH TP PRN (01:15)
[2020-12-23 05:56] LABS: BASOPHILS % 0.3 % (0.0-1.0); HEMATOCRIT 41.4 % (34.2-44.1); HEMOGLOBIN 13.1 g/dL (12.0-16.0); LYMPHOCYTES # (AUTO) 0.6 (1.0-3.2); LYMPHOCYTES % 18.1 % (18.0-39.1); MEAN CORPUSCULAR HEMOGLOBIN 29.7 pg (28-32); MEAN CORPUSCULAR HGB CONC 31.6 g/dL (31-35); MEAN CORPUSCULAR VOLUME 93.9 fL (81-99); MONOCYTES # (AUTO) 0.1 (0.2-0.8); MONOCYTES % 3.7 % (4.4-11.3); NEUTROPHILS # (AUTO) 2.7 (2.1-6.9); NEUTROPHILS % 77.3 % (38.7-80.0); PLATELET COUNT 151 x10e3/uL (140-360); RED BLOOD COUNT 4.41 x10e6/uL (3.6-5.1); RED CELL DISTRIBUTION WIDTH 12.8 % (11.7-14.4)
[2020-12-23 06:29] LABS: ALBUMIN 3.4 g/dL (3.5-5.0); ALBUMIN/GLOBULIN RATIO 0.9 (0.8-2.0); ANION GAP 16.2 mmol/L (8-16); CALCIUM 8.5 mg/dL (8.4-10.2); CREATININE, SERUM 0.7 mg/dL (0.57-1.11); POTASSIUM 4.2 mmol/L (3.5-5.1)
[2020-12-23] MEDS ORDERED: REMDESIVIR 200MG/NS 100ML 200 MG in SODIUM CHLORIDE 0.9% 100 ML 100 ML IV ONE (09:00)
[2020-12-23] MEDS: PANTOPRAZOLE SOD 40 MG TABEC PO SCH (10:13)
[2020-12-23] MEDS: ZINC SULFATE 220 MG CAP PO SCH (10:13)
[2020-12-23] MEDS: ASCORBIC ACID 500 MG TAB PO SCH (10:13)
[2020-12-23 10:53] LABS: LYMPHOCYTES % (MANUAL) 12 % (19-48); MONOCYTES % (MANUAL) 3 % (3.4-9.0); NEUTROPHILS % (MANUAL) 83 % (40-74); PLATELET ESTIMATE ADEQUATE; PLATELET MORPHOLOGY COMMENT FEW LARGE; RBC MORPHOLOGY COMMENT NORMAL
[2020-12-23] MEDS: CEFTRIAXONE 1 GM in SODIUM CHLORIDE 0.9% 50ML 50 ML IV SCH (12:27)
[2020-12-23] MEDS: ENOXAPARIN SOD INJ 40 MG/0.4 ML SYR SC SCH (17:44)
[2020-12-23] MEDS: DEXAMETHASONE SOD PHOS INJ 4 MG/ML VIAL IV SCH (21:34)
[2020-12-24] VITALS (8 sets, daily range): BP systolic 130–142; BP diastolic 77–94
[2020-12-24 06:02] LABS: BASOPHILS % 0.3 % (0.0-1.0); HEMATOCRIT 44.3 % (34.2-44.1); HEMOGLOBIN 14.1 g/dL (12.0-16.0); LYMPHOCYTES # (AUTO) 0.9 (1.0-3.2); LYMPHOCYTES % 25.2 % (18.0-39.1); MEAN CORPUSCULAR HEMOGLOBIN 29.7 pg (28-32); MEAN CORPUSCULAR HGB CONC 31.8 g/dL (31-35); MEAN CORPUSCULAR VOLUME 93.3 fL (81-99); MONOCYTES # (AUTO) 0.4 (0.2-0.8); MONOCYTES % 9.7 % (4.4-11.3); NEUTROPHILS # (AUTO) 2.4 (2.1-6.9); NEUTROPHILS % 64.5 % (38.7-80.0); PLATELET COUNT 212 x10e3/uL (140-360); RED BLOOD COUNT 4.75 x10e6/uL (3.6-5.1); RED CELL DISTRIBUTION WIDTH 12.8 % (11.7-14.4)
[2020-12-24 06:33] LABS: ANION GAP 15.9 mmol/L (8-16); CALCIUM 8.7 mg/dL (8.4-10.2); CREATININE, SERUM 0.71 mg/dL (0.57-1.11); POTASSIUM 3.9 mmol/L (3.5-5.1)
[2020-12-24] MEDS: REMDESIVIR 100MG/NS 100ML 100 MG in SODIUM CHLORIDE 0.9% 100 ML 100 ML IV SCH (08:03)
[2020-12-24] MEDS: ZINC SULFATE 220 MG CAP PO SCH (08:03)
[2020-12-24] MEDS: ASCORBIC ACID 500 MG TAB PO SCH (08:03)
[2020-12-24] MEDS: PANTOPRAZOLE SOD 40 MG TABEC PO SCH (08:03)
[2020-12-24] MEDS: CEFTRIAXONE 1 GM in SODIUM CHLORIDE 0.9% 50ML 50 ML IV SCH (13:37)
[2020-12-24] MEDS: ENOXAPARIN SOD INJ 40 MG/0.4 ML SYR SC SCH (16:46)
[2020-12-24] MEDS ORDERED: GUAIFENESIN/CODEINE 5 ML LIQD PO PRN (20:15)
[2020-12-24] MEDS: DEXAMETHASONE SOD PHOS INJ 4 MG/ML VIAL IV SCH (21:20)
[2020-12-25] VITALS (8 sets, daily range): BP systolic 109–137; BP diastolic 69–99
[2020-12-25] MEDS: PANTOPRAZOLE SOD 40 MG TABEC PO SCH (07:33)
[2020-12-25] MEDS: ZINC SULFATE 220 MG CAP PO SCH (08:57)
[2020-12-25] MEDS: ASCORBIC ACID 500 MG TAB PO SCH (08:57)
[2020-12-25] MEDS: REMDESIVIR 100MG/NS 100ML 100 MG in SODIUM CHLORIDE 0.9% 100 ML 100 ML IV SCH (08:57)
[2020-12-25] MEDS: CEFTRIAXONE 1 GM in SODIUM CHLORIDE 0.9% 50ML 50 ML IV SCH (13:20)
[2020-12-25] MEDS: ENOXAPARIN SOD INJ 40 MG/0.4 ML SYR SC SCH (17:17)
[2020-12-25] MEDS: DEXAMETHASONE SOD PHOS INJ 4 MG/ML VIAL IV SCH (21:59)
[2020-12-26] VITALS: BP 147/88
[2020-12-26] MEDS: PANTOPRAZOLE SOD 40 MG TABEC PO SCH (07:32)
[2020-12-26 07:40] VITALS: BP 147/88
[2020-12-26 08:09] VITALS: BP 133/93
[2020-12-26] MEDS: REMDESIVIR 100MG/NS 100ML 100 MG in SODIUM CHLORIDE 0.9% 100 ML 100 ML IV SCH (09:40)
[2020-12-26] MEDS: ZINC SULFATE 220 MG CAP PO SCH (09:40)
[2020-12-26] MEDS: ASCORBIC ACID 500 MG TAB PO SCH (09:40)
[2020-12-26 11:51] VITALS: BP 149/98
[2020-12-26] MEDS: CEFTRIAXONE 1 GM in SODIUM CHLORIDE 0.9% 50ML 50 ML IV SCH (12:47)
[2020-12-26] MEDS ORDERED: ONDANSETRON HCL 4 MG ORAL DISINTEGRATING TAB PO PRN (13:30)
== END 2020-12-26 14:20 | disposition home or self-care (01) | DRG 871 ==
LOC: ER 21:30 → ERHOLD 21:55 → IMCU 22:45
PROVIDERS: ADMIT Internal Medicine; ATTEND Internal Medicine
PROC: 8E0ZXY6 Isolation (ICD-10-PCS; principal; 2020-12-22)
PROC: XW033E5 Introduction of Remdesivir Anti-infective into Peripheral Vein, Percutaneous Approach, New Technology Group 5 (ICD-10-PCS; 2020-12-23)
DX: A41.89 Other specified sepsis (principal); U07.1 COVID-19; J12.82 Pneumonia due to coronavirus disease 2019; J96.01 Acute respiratory failure with hypoxia; E87.6 Hypokalemia; I10 Essential (primary) hypertension; E66.01 Morbid (severe) obesity due to excess calories; Z68.38 Body mass index [BMI] 38.0-38.9, adult; K29.70 Gastritis, unspecified, without bleeding; K75.89 Other specified inflammatory liver diseases
CPT/HCPCS: 36415; 71045; 80048; 80053; 82550; 82553; 82728; 83036; 84484; 85025; 86140; 93005; 99251; 99285; J0456; J0696; J1100; J1650; J7050; U0002